=== PATIENT | male | born 1965 | race Caucasian/White ===

== ENCOUNTER → 2017-12-30 | Outpatient (CLI) | payer OTHER | END | disposition home or self-care (01) | LOC: PLD 09:59 → LAB SHORT 09:59 | DX: L92.8 Other granulomatous disorders of the skin and subcutaneous tissue (principal); E83.19 Other disorders of iron metabolism | CPT/HCPCS: 88305 ==

== ENCOUNTER 2019-04-07 12:14 | Day surgery (SDC) | payer OTHER ==
[~2019-04-07] VITALS: Ht 167.6 cm; Wt 92.7 kg
[~2019-04-07 12:14] MED LIST: ASCO500 PO; MULTI VITAMIN1 EACH PO; ZYRTEC10 M1 PO
[2019-04-07] MEDS ORDERED: Oyster Shell C500 MG (13:09)
== END 2019-04-07 14:36 | disposition home or self-care (01) ==
LOC: ORSCSDS 12:14
PROVIDERS: Internal Medicine Gastroenterology
PROC: 0DBL8ZX Excision of Transverse Colon, Via Natural or Artificial Opening Endoscopic, Diagnostic (ICD-10-PCS; principal; 2019-04-07 13:30)
DX: Z12.11 Encounter for screening for malignant neoplasm of colon (principal); D12.3 Benign neoplasm of transverse colon; K64.8 Other hemorrhoids; K57.30 Diverticulosis of large intestine without perforation or abscess without bleeding; Z80.0 Family history of malignant neoplasm of digestive organs; Z86.010 Personal history of colon polyps
CPT/HCPCS: 88305; J2704; J7120

== ENCOUNTER 2022-03-27 11:45 | Day surgery (SDC) | payer OTHER ==
[~2022-03-27] VITALS: Ht 167.6 cm; Wt 95.0 kg
[~2022-03-27 11:45] MED LIST changes: +Oyster Shell C500 MG
== END 2022-03-27 13:26 | disposition home or self-care (01) ==
LOC: ORSCSDS 11:45
PROVIDERS: Internal Medicine Gastroenterology
PROC: 0DBL8ZX Excision of Transverse Colon, Via Natural or Artificial Opening Endoscopic, Diagnostic (ICD-10-PCS; principal; 2022-03-27 13:00)
PROC: 0DBH8ZX Excision of Cecum, Via Natural or Artificial Opening Endoscopic, Diagnostic (ICD-10-PCS; principal; 2022-03-27 13:00)
DX: Z12.11 Encounter for screening for malignant neoplasm of colon (principal); Z86.010 Personal history of colon polyps; D12.0 Benign neoplasm of cecum; D12.3 Benign neoplasm of transverse colon; K57.30 Diverticulosis of large intestine without perforation or abscess without bleeding; K64.4 Residual hemorrhoidal skin tags
CPT/HCPCS: 88305; J2704; J7120